=== PATIENT | male | born 2000 | race Caucasian/White ===

== ENCOUNTER 2023-10-27 11:32 | Emergency (ER) | payer MEDICAID, OTHER ==
[~2023-10-27] VITALS: Ht 180.3 cm; Wt 65.6 kg
[2023-10-27] MEDS: cefTRIAXone 1GM/50ML D5W 50 ML IV ONE (12:34)
[2023-10-27] MEDS ORDERED: CLIN150C PO (12:42)
[2023-10-27] MEDS ORDERED: TRAM50TA2 PO (12:42)
[2023-10-27 13:13] VITALS: BP 129/70; PULSE 75; RESP 16; TEMP 98.5; O2SAT 100
== END 2023-10-27 13:14 | disposition home or self-care (01) ==
LOC: ER 11:32
DX: K04.7 Periapical abscess without sinus (principal); F17.210 Nicotine dependence, cigarettes, uncomplicated; F12.10 Cannabis abuse, uncomplicated
CPT/HCPCS: 96365; 99284; J0696

== ENCOUNTER 2024-02-09 06:40 | Emergency (ER) | payer SELFPAY ==
[~2024-02-09] VITALS: Ht 182.9 cm; Wt 66.4 kg
[~2024-02-09 06:40] MED LIST: CLIN150C PO; TRAM50TA2 PO
[2024-02-09 07:01] VITALS: BP 136/86; PULSE 88; RESP 16; TEMP 98.1; O2SAT 98
--- NOTE | 2024-02-09 07:13 | ED.PDOC ---
Eye-HPI HPI Comments 23-year-old male patient presents to the clinic for left-sided facial swelling. Patient reports that the swelling started at 12:00 p.m. yesterday and has significantly increased over night. Denies any fever or pain at this time. Patient reports pain when eating food. Patient reports a history of dental caries with infection in the same place. Patient reports being on antibiotics in October for similar infection. Patient does not currently have insurance with the money to see a dentist. Chief Complaint: Tooth Pain Time Seen by MD: 06:57 Primary Care Provider: NONE Reviewed Notes: Nurses Notes, Medications, Allergies Allergies: Coded Allergies: NO KNOWN ALLERGIES (Unverified , 10/27/23) Home Meds Active Scripts Ibuprofen (Ibuprofen) 600 Mg Tab, 1 TAB PO TID for 30 Days, #90 TAB Prov:OC PAULINO [facility] 02/09/24 Amoxicillin & Pot Clavulanate (Amoxicillin/Clavulanate P) 600 Mg/5 Ml Oralia, 875 MG PO BID for 10 Days, #20 ML 0 Refills Prov:OC PAULINOP 02/09/24 Clindamycin Hcl (CLEOCIN) 150 Mg Cap, 1 CAP PO QID, #40 CAP Prov:DIGNA SANDERSON MD 10/27/23 Tramadol Hcl (Tramadol Hcl) 50 Mg Tab, 50 MG PO Q8HP PRN for 5 Days, #15 TAB Prov:DIGNA SANDERSON MD 10/27/23 Information Source: Patient Mode of Arrival: Ambulatory Past Medical History PAST MEDICAL HISTORY: Denies Surgical History: Denies all surgeries Family History Family History: Reviewed,noncontributory to illness Social History Smoker: Cigarettes Alcohol: Occasionally Drugs: Marijuana Lives In: Home Constitutional: denies: chills, diaphoresis, fatigue, fever, malaise, sweats, weakness, others EENTM: reports: mouth swelling (left) Respiratory: denies: cough, hemoptysis, orthopnea, SOB at rest, shortness of breath, SOB with excertion, stridor, wheezing, others Cardiovascular: denies: chest pain, dizzy spells, diaphoresis, Dyspnea on exertion, edema, irregular heart beat, left arm pain, lightheadedness, palpitations, PND, syncope, others Gastrointestinal: denies: abdomen distended, abdominal pain, blood streaked bowels, constipated, diarrhea, dysphagia, difficulty swallowing, hematemesis, melena, nausea, poor appetite, poor fluid intake, rectal bleeding, rectal pain, vomiting, others Genitourinary: denies: burning, dysuria, flank pain, frequency, hematuria, incontinence, penile discharge, penile sore, pain, testicle pain, testicle swelling, urgency, others Neurological: denies: dizziness, fainting, headache, left sided numbness, left sided weakness, numbness, paresthesia, pre-existing deficit, right sided numbness, right sided weakness, seizure, speech problems, tingling, tremors, weakness, others Musculoskeletal: denies: back pain, gout, joint pain, joint swelling, muscle pain, muscle stiffness, neck pain, others Integumetry: denies: bruises, change in color, change in hair/nails, dryness, laceration, lesions, lumps, rash, wounds, others Allergic/Immunocompromised: denies: Difficulty Healing, Frequent Infections, Hives, Itching, others Hematologic/Lymphatic: denies: anemia, blood clots, easy bleeding, easy bruising, swollen glands, others Endocrine: denies: excessive hunger, excessive sweating, excessive thirst, excessive urination, flushing, intolerance to cold, intolerance to heat, unexplained weight gain, unexplained weight loss, others Psychiatric: denies: anxiety, bipolar disorder, depression, hopeless, panic disorder, schizophrenia, sleepless, suicidal, others All Other Systems: Reviewed and Negative Physical Exam General Appearance: No Apparent Distress, Normal HEENT: Normal ENT Inspection, Pharynx Normal, TMs Normal, Other (Left-sided facial swelling, multiple dental caries) Neck: Full Range of Motion, Non-Tender, Normal, Normal Inspection Respiratory: Chest Non-Tender, Lungs Clear, No Accessory Muscle Use, No Respiratory Distress, Normal Breath Sounds Cardiovascular: No Edema, No JVD, No Murmur, No Gallop, Normal Peripheral Pulses, Regular Rate/Rhythm Breast Exam: Deferred Gastrointestinal: No Organomegaly, Non Tender, No Pulsatile Mass, Normal Bowel Sounds, Soft Genitalia: Deferred Pelvic: Deferred Rectal: Deferred Extremities: No calf tenderness, Normal capillary refill, Normal inspection, Normal range of motion, Non-tender, No pedal edema Musculoskeletal : Apperance: Normal Neurologic: Alert, lift builder whole II-XII nml as Tested, No Motor Deficits, Normal Affect, Normal Mood, No Sensory Deficits Cerebellar Function: Normal Reflexes: Normal Skin: Dry, Normal Color, Warm Lymphatic: No Adenopathy Was a procedure done? Was a procedure done?: No EENT DIFF Eye: N/A Ear: Dental Nose: N/A Mouth: N/A Sore Throat: Herpangina, Pharyngitis X-Ray, Labs, Meds, VS Vital Signs Date Time Temp Pulse Resp B/P (MAP) Pulse Ox O2 Delivery O2 Flow Rate FiO2 02/09/24 07:01 98.1 88 16 136/86 (103) 98 98.1 02/09/24 07:01 88 16 98 Room Air 02/09/24 06:50 98.1 88 16 136/86 (103) 98 Lab Test 02/09/24 00:00 Range/Units White Blood Count 8.7 4.4-10.8 10^3/uL Red Blood Count 4.59 4.5-5.90 10^6/uL Hemoglobin 13.5 13.5-17.5 g/dL Hematocrit 39.4 L 41.0-53.0 % Mean Corpuscular Volume 85.9 80.0-100.0 fL Mean Corpuscular Hemoglobin 29.4 28.0-32.0 pg Mean Corpuscular Hemoglobin Concent 34.2 32.0-36.0 g/dL Red Cell Distribution Width 13.2 11.8-14.3 % Platelet Count 209 140-450 10^3/uL Mean Platelet Volume 8.6 6.9-10.8 fL Neutrophils (%) (Auto) 75.2 37.0-80.0 % Lymphocytes (%) (Auto) 16.6 10.0-50.0 % Monocytes (%) (Auto) 7.5 0.0-12.0 % Eosinophils (%) (Auto) 0.4 0.0-7.0 % Basophils (%) (Auto) 0.3 0.0-2.0 % Neutrophils # (Auto) 6.5 1.6-8.6 10 ^3/uL Lymphocytes # (Auto) 1.4 0.4-5.4 10 ^3/uL Monocytes # (Auto) 0.7 0-1.3 10 ^3/uL Eosinophils # (Auto) 0 0-0.8 10 ^3/uL Basophils # (Auto) 0 0-0.2 10 ^3/uL Nucleated Red Blood Cells 0.0 % Sodium Level 140 136-145 mmol/L Potassium Level 4.4 3.5-5.1 mmol/L Chloride Level 110 H 98-107 mmol/L Carbon Dioxide Level 25 20-31 mmol/L Anion Gap 5 5-15 Blood Urea Nitrogen 11 9-23 mg/dL Creatinine 1.00 0.700-1.30 mg/dL Glomerular Filtration Rate Calc 108 >90 mL/min BUN/Creatinine Ratio 11.0 10.0-20.0 Serum Glucose 97 74-106 mg/dL Calcium Level 9.7 8.7-10.4 mg/dL Current Medications Medications (Trade) Dose Ordered Sig/Marija Route Start Time Stop Time Status Last Admin Penicillin G Benzathine (Bicillin L-A) 2,400,000 units ONCE ONCE IM 02/09/24 07:15 02/09/24 07:20 DC 02/09/24 07:25 Sodium Chloride 1,000 ml @ 1,000 mls/hr Q1H ONCE IV 02/09/24 07:45 02/09/24 08:44 DC 02/09/24 07:55 X-Ray, Labs, Meds, VS Comment On re-evaluation patient has symptomatic improvement. IV and IV fluids carried to patient due to vasovagal situation after a dministration of penicillin Patient is stable for discharge at this time. Patient to attempt to find a dentist or dental insurance and follow up with a dentist for treatment of dental caries. Patient to take antibiotics as prescribed All test results and diagnostic imaging have been interpreted. All diagnostic findings, discharge care, and education instruction provided to the patient. Follow-up with PCP in 2-3 days Patient verbalized understanding, discharge instructions and agrees to treatment plan Vital signs are stable Patient is ambulatory Patient advised of which symptoms necessitate a return visit to the emergency room. Patient to return emergency room for any new worsening symptoms. Patient is aware that the purpose of this visit is for an acute medical emergency requiring emergent stabilization. Chronic conditions, including malignancies have not been ruled out. Patient is instructed to follow up with PCP as directed for continued care and workup. If unable to arrange follow up, patient is to return to the emergency room for reassessment. Patient was given verbal and written discharge instructions and acknowledges understanding Time of 1ST Reevaluation: :55 Reevaluation 1ST: Improved Patient Education/Counseling: Diagnosis, Treatment, Prognosis Family Education/Counseling: No Family Present Departure 1 Departure Time of Disposition: 09:04 Impression: Primary Impression: Infected dental caries Disposition: 01 HOME / SELF CARE / HOMELESS Condition: Stable e-Prescriptions Ibuprofen (Ibuprofen) 600 Mg Tab 1 TAB PO TID for 30 Days, #90 TAB Prov: OC PAULINO [facility] 02/09/24 Amoxicillin & Pot Clavulanate (Amoxicillin/Clavulanate P) 600 Mg/5 Ml Oralia 875 MG PO BID for 10 Days, #20 ML 0 Refills Prov: OC PAULINO [facility] 02/09/24 Discharged With: Self Critical Care Note Critical Care Time?: No Stability Stability form required: No Heart Score Heart Score: Heart Score Response (Comments) Value History N/A 0 EKG N/A 0 Age N/A 0 Risk Factors N/A 0 Troponin N/A 0 Total 0 OC PAULINO [facility] Feb 09, 2024 07:13
[2024-02-09] MEDS ORDERED: IBUP-1454 PO (07:20)
[2024-02-09] MEDS ORDERED: AMOX600S PO (07:20)
[2024-02-09] MEDS: PENICILLIN G BENZ 1,200,000 UNITS/2 ML SYRG IM ONE (07:25)
[2024-02-09] MEDS: SODIUM CHLORIDE 0.9% 1,000 ML IV ONE (07:55)
[2024-02-09 08:30] LABS: Basophils # (auto) 0 10 ^3/uL (0-0.2); Basophils % (auto) 0.3 % (0.0-2.0); Eosinophils # (auto) 0 10 ^3/uL (0-0.8); Eosinophils % (auto) 0.4 % (0.0-7.0); Hematocrit 39.4 % (41.0-53.0); Hemoglobin 13.5 g/dL (13.5-17.5); Lymphocytes # (auto) 1.4 10 ^3/uL (0.4-5.4); Lymphocytes % (auto) 16.6 % (10.0-50.0); Mean Corpuscular Hemoglobin 29.4 pg (28.0-32.0); Mean Corpuscular Hgb Conc. 34.2 g/dL (32.0-36.0); Mean Corpuscular Volume 85.9 fL (80.0-100.0); Monocytes # (auto) 0.7 10 ^3/uL (0-1.3); Monocytes % (auto) 7.5 % (0.0-12.0); Neutrophils # (auto) 6.5 10 ^3/uL (1.6-8.6); Neutrophils % (auto) 75.2 % (37.0-80.0); Platelet Count (auto) 209 10^3/uL (140-450); Red Blood Cells 4.59 10^6/uL (4.5-5.90); Red Cell Distribution Width 13.2 % (11.8-14.3); White Blood Cell 8.7 10^3/uL (4.4-10.8)
[2024-02-09 08:46] LABS: Chloride 110 mmol/L (98-107); Potassium 4.4 mmol/L (3.5-5.1); Sodium 140 mmol/L (136-145)
[2024-02-09 08:47] LABS: Anion Gap 5 (5-15); Calcium 9.7 mg/dL (8.7-10.4); Carbon Dioxide 25 mmol/L (20-31)
[2024-02-09 08:52] LABS: Blood Urea Nitrogen 11 mg/dL (9-23); Glucose 97 mg/dL (74-106)
== END 2024-02-09 18:02 | disposition home or self-care (01) ==
LOC: ER 06:40
DX: K02.9 Dental caries, unspecified (principal); F17.210 Nicotine dependence, cigarettes, uncomplicated; Z79.899 Other long term (current) drug therapy
CPT/HCPCS: 36415; 80048; 85025; 96360; 96372; 99283; J0561; J7030

== ENCOUNTER 2024-03-02 09:15 | Emergency (ER) | payer SELFPAY ==
[~2024-03-02] VITALS: Ht 182.9 cm; Wt 68.0 kg
[~2024-03-02 09:15] MED LIST changes: +AMOX600S PO; +IBUP-1454 PO
[2024-03-02 10:42] VITALS: BP 117/62; PULSE 72; RESP 16; TEMP 97.6; O2SAT 99
[2024-03-02] MEDS ORDERED: IBUP-1454 PO (10:47)
--- NOTE | 2024-03-02 10:47 | ED.PDOC ---
History of Present Illness HPI Comments 23-year-old male who comes in with chief complaint of left upper mouth pain as well as pain to the inferior aspect of the left eye. The patient states that he is status post tooth extraction approximately two weeks ago. He was on penicillin but he is no longer on any antibiotics. The patient has no other complaints at this time. Chief Complaint: Face pain Time Seen by MD: 10:15 Primary Care Provider: NONE Reviewed Notes: Nurses Notes, Medications, Allergies (No allergies to medications) Allergies: Coded Allergies: NO KNOWN ALLERGIES (Unverified , 10/27/23) Home Meds Active Scripts Ibuprofen (Ibuprofen) 600 Mg Tab, 1 TAB PO TID for 30 Days, #90 TAB Prov:DIGNA SANDERSON MD 03/02/24 Clindamycin Hcl (CLEOCIN) 150 Mg Cap, 1 CAP PO QID, #40 CAP Prov:DIGNA SANDERSON MD 03/02/24 Amoxicillin & Pot Clavulanate (Amoxicillin/Clavulanate P) 600 Mg/5 Ml Oralia, 875 MG PO BID for 10 Days, #20 ML 0 Refills Prov:OC PAULINO [facility] 02/09/24 Tramadol Hcl (Tramadol Hcl) 50 Mg Tab, 50 MG PO Q8HP PRN for 5 Days, #15 TAB Prov:DIGNA SANDERSON MD 10/27/23 Information Source: Patient Mode of Arrival: Ambulatory Severity: Moderate Timing: Days Duration: Since onset Prehospital treatment: None Associated signs and symptoms The patient denies any fever or chill Past Medical History PAST MEDICAL HISTORY: Denies Surgical History (Other): Tooth extraction Family History Family History: Reviewed,noncontributory to illness Social History Smoker: Cigarettes Alcohol: Occasionally Drugs: Marijuana Lives In: Home Constitutional: denies: chills, diaphoresis, fatigue, fever, malaise, sweats, weakness, others EENTM: reports: others (Swelling to the left facial area underneath the left eye); denies: blurred vision, double vision, ear bleeding, ear discharge, ear drainage, ear pain, ear ringing, eye pain, eye redness, hearing loss, mouth pain, mouth swelling, nasal discharge, nose bleeding, nose congestion, nose pain, photophobia, tearing, throat pain, throat swelling, voice changes Respiratory: denies: cough, hemoptysis, orthopnea, SOB at rest, shortness of breath, SOB with excertion, stridor, wheezing, others Cardiovascular: denies: chest pain, dizzy spells, diaphoresis, Dyspnea on exertion, edema, irregular heart beat, left arm pain, lightheadedness, palpitations, PND, syncope, others Gastrointestinal: denies: abdomen distended, abdominal pain, blood streaked bowels, constipated, diarrhea, dysphagia, difficulty swallowing, hematemesis, melena, nausea, poor appetite, poor fluid intake, rectal bleeding, rectal pain, vomiting, others Genitourinary: denies: burning, dysuria, flank pain, frequency, hematuria, incontinence, penile discharge, penile sore, pain, testicle pain, testicle swelling, urgency, others Neurological: denies: dizziness, fainting, headache, left sided numbness, left sided weakness, numbness, paresthesia, pre-existing deficit, right sided numbness, right sided weakness, seizure, speech problems, tingling, tremors, weakness, others Musculoskeletal: denies: back pain, gout, joint pain, joint swelling, muscle pain, muscle stiffness, neck pain, others Integumetry: denies: bruises, change in color, change in hair/nails, dryness, laceration, lesions, lumps, rash, wounds, others Allergic/Immunocompromised: denies: Difficulty Healing, Frequent Infections, Hives, Itching, others Hematologic/Lymphatic: denies: anemia, blood clots, easy bleeding, easy bruising, swollen glands, others Endocrine: denies: excessive hunger, excessive sweating, excessive thirst, excessive urination, flushing, intolerance to cold, intolerance to heat, u nexplained weight gain, unexplained weight loss, others Psychiatric: denies: anxiety, bipolar disorder, depression, hopeless, panic disorder, schizophrenia, sleepless, suicidal, others Physical Exam General Appearance: No Apparent Distress HEENT: Pharynx Normal, TMs Normal, Other (There is some tenderness to the left Shirley molar area around the tooth extraction) Neck: Full Range of Motion, Non-Tender, Normal, Normal Inspection Respiratory: Chest Non-Tender, Lungs Clear, No Accessory Muscle Use, No Respiratory Distress, Normal Breath Sounds Cardiovascular: No Edema, No JVD, No Murmur, No Gallop, Normal Peripheral Pulse s, Regular Rate/Rhythm Breast Exam: Deferred Gastrointestinal: No Organomegaly, Non Tender, No Pulsatile Mass, Normal Bowel Sounds, Soft Genitalia: Deferred Pelvic: Deferred Rectal: Deferred Extremities: No calf tenderness, Normal capillary refill, Normal inspection, Normal range of motion, Non-tender, No pedal edema Musculoskeletal : Apperance: Normal Neurologic: Alert, can tester II-XII nml as Tested, No Motor Deficits, Normal Affect, Normal Mood, No Sensory Deficits Cerebellar Function: Normal Reflexes: Normal Skin: Dry, Normal Color, Warm Lymphatic: No Adenopathy Was a procedure done? Was a procedure done?: No Differential Dx Considerations may include: Cellulitis, abscess X-Ray, Labs, Meds, VS Vital Signs Date Time Temp Pulse Resp B/P (MAP) Pulse Ox O2 Delivery O2 Flow Rate FiO2 03/02/24 10:43 Room Air* 0 21 03/02/24 10:42 97.6 72 16 117/62 (80) 99 97.6 03/02/24 09:25 98.0 83 16 135/79 (97) 99 The patient is being discharged on clindamycin The patient will return to the emergency department's the condition worsens. Images Reviewed?: Images reviewed and evaluated by me Time of 1ST Reevaluation: 10:46 Reevaluation 1ST: Improved Patient Education/Counseling: Diagnosis, Treatment, Prognosis, Need For Follow Up Family Education/Counseling: No Family Present Departure 1 Departure Time of Disposition: 10:46 Impression: Primary Impression: Infected dental caries Disposition: 01 HOME / SELF CARE / HOMELESS Condition: Fair e-Prescriptions Ibuprofen (Ibuprofen) 600 Mg Tab 1 TAB PO TID for 30 Days, #90 TAB Prov: DIGNA SANDERSON MD 03/02/24 Clindamycin Hcl (CLEOCIN) 150 Mg Cap 1 CAP PO QID, #40 CAP Prov: DIGNA SANDERSON MD 03/02/24 Discharged With: Self Critical Care Note Critical Care Time?: No Stability Stability form required: No Heart Score Heart Score: Heart Score Response (Comments) Value History N/A 0 EKG N/A 0 Age N/A 0 Risk Factors N/A 0 Troponin N/A 0 Total 0 DIGNA SANDERSON MD Mar 02, 2024 10:47
== END 2024-03-02 10:56 | disposition home or self-care (01) ==
LOC: ER 09:15
DX: K02.9 Dental caries, unspecified (principal); K04.7 Periapical abscess without sinus; F17.210 Nicotine dependence, cigarettes, uncomplicated; Z79.899 Other long term (current) drug therapy; Z98.890 Other specified postprocedural states

== ENCOUNTER 2024-04-20 13:32 | Emergency (ER) | payer SELFPAY ==
[~2024-04-20] VITALS: Ht 182.9 cm; Wt 67.9 kg
[2024-04-20 14:43] VITALS: BP 120/67; PULSE 83; RESP 18; TEMP 97.6; O2SAT 96
[2024-04-20] MEDS ORDERED: CLIN1CAP70 PO (15:57)
[2024-04-20] MEDS ORDERED: AMOX500C2 PO (15:57)
--- NOTE | 2024-04-20 15:57 | ED.PDOC ---
History of Present Illness HPI Comments 23-year-old male came to the ER stating that he has been having tooth swelling which started last night. Swelling is on the left side left lower tooth. He does have dental caries. Denies any fever chills cough. Denies any other symptoms. Chief Complaint: Tooth Pain Time Seen by MD: 14:28 Primary Care Provider: DENIES Reviewed Notes: Nurses Notes, Medications, Allergies Allergies: Coded Allergies: Penicillins (Verified Allergy, Unknown, 04/20/24) Home Meds Active Scripts Ibuprofen (Ibuprofen) 600 Mg Tab, 1 TAB PO TID for 30 Days, #90 TAB Prov:DIGNA SANDERSON MD 03/02/24 Clindamycin Hcl (CLEOCIN) 150 Mg Cap, 1 CAP PO QID, #40 CAP Prov:DIGNA SANDERSON MD 03/02/24 Amoxicillin & Pot Clavulanate (Amoxicillin/Clavulanate P) 600 Mg/5 Ml Oralia, 875 MG PO BID for 10 Days, #20 ML 0 Refills Prov:OC PAULINO 02/09/24 Tramadol Hcl (Tramadol Hcl) 50 Mg Tab, 50 MG PO Q8HP PRN for 5 Days, #15 TAB Prov:DIGNA SANDERSON MD 10/27/23 Information Source: Patient Mode of Arrival: Ambulatory Severity: Mild Timing: Hours Duration: Since onset Past Medical History PAST MEDICAL HISTORY: Denies Surgical History: Denies all surgeries Family History Family History: Reviewed,noncontributory to illness Social History Smoker: Cigarettes Alcohol: Occasionally Drugs: Marijuana Lives In: Home Constitutional: denies: chills, diaphoresis, fatigue, fever, malaise, sweats, weakness, others EENTM: denies: blurred vision, double vision, ear bleeding, ear discharge, ear drainage, ear pain, ear ringing, eye pain, eye redness, hearing loss, mouth pa in, mouth swelling, nasal discharge, nose bleeding, nose congestion, nose pain, photophobia, tearing, throat pain, throat swelling, voice changes, others Respiratory: denies: cough, hemoptysis, orthopnea, SOB at rest, shortness of breath, SOB with excertion, stridor, wheezing, others Cardiovascular: denies: chest pain, dizzy spells, diaphoresis, Dyspnea on exertion, edema, irregular heart beat, left arm pain, lightheadedness, palpitations, PND, syncope, others Gastrointestinal: denies: abdomen distended, abdominal pain, blood streaked bowels, constipated, diarrhea, dysphagia, difficulty swallowing, hematemesis, melena, nausea, poor appetite, poor fluid intake, rectal bleeding, rectal pain, vomiting, others Genitourinary: denies: burning, dysuria, flank pain, frequency, hematuria, incontinence, penile discharge, penile sore, pain, testicle pain, testicle swelling, urgency, others Neurological: denies: dizziness, fainting, headache, left sided numbness, left sided weakness, numbness, paresthesia, pre-existing deficit, right sided numbness, right sided weakness, seizure, speech problems, tingling, tremors, weakness, others Musculoskeletal: denies: back pain, gout, joint pain, joint swelling, muscle pain, muscle stiffness, neck pain, others Integumetry: reports: wounds (Left lower tooth); denies: bruises, change in color, change in hair/nails, dryness, laceration, lesions, lumps, rash, others Allergic/Immunocompromised: denies: Difficulty Healing, Frequent Infections, Hives, Itching, others Hematologic/Lymphatic: denies: anemia, blood clots, easy bleeding, easy bruising, swollen glands, others Endocrine: denies: excessive hunger, excessive sweating, excessive thirst, excessive urination, flushing, intolerance to cold, intolerance to heat, unexplained weight gain, unexplained weight loss, others Psychiatric: denies: anxiety, bipolar disorder, depression, hopeless, panic disorder, schizophrenia, sleepless, suicidal, others Physical Exam General Appearance: Moderate Distress HEENT: Other (Dental caries) Neck: Full Range of Motion, Non-Tender, Normal, Normal Inspection Respiratory: Chest Non-Tender, Lungs Clear, No Accessory Muscle Use, No Respiratory Distress, Normal Breath Sounds Cardiovascular: No Edema, No JVD, No Murmur, No Gallop, Normal Peripheral Pulses, Regular Rate/Rhythm Breast Exam: Deferred Gastrointestinal: No Organomegaly, Non Tender, No Pulsatile Mass, Normal Bowel Sounds, Soft Genitalia: Deferred Pelvic: Deferred Rectal: Deferred Extremities: No calf tenderness, Normal capillary refill, Normal inspection, Normal range of motion, Non-tender, No pedal edema Musculoskeletal : Apperance: Normal Neurologic: Alert, customer contact sales associate II-XII nml as Tested, No Motor Deficits, Normal Affect, Normal Mood, No Sensory Deficits Cerebellar Function: Normal Reflexes: Normal Skin: Wounds (Infected lower tooth) Peripheral Pulses: 3+ Radial (R), 3+ Radial (L) Lymphatic: No Adenopathy Was a procedure done? Was a procedure done?: No Differential Dx Considerations may include: Dental caries X-Ray, Labs, Meds, VS Vital Signs Date Time Temp Pulse Resp B/P (MAP) Pulse Ox O2 Delivery O2 Flow Rate FiO2 04/20/24 14:43 97.6 83 18 120/67 (84) 96 97.6 04/20/24 14:05 97.6 83 18 120/67 (84) 96 Patient alert. Complaining of tooth swelling. Vitals stable. Answering all questions. Dental caries. Was given prescription of amoxicillin clindamycin antibiotic. Explained to the patient. Was told to follow up with his dentist. Was told to follow up with his primary care physician. Was told to come back if there is any problem. Time of 1ST Reevaluation: 15:55 Reevaluation 1ST: Unchanged Patient Education/Counseling: Diagnosis, Treatment, Prognosis, Need For Follow Up Family Education/Counseling: No Family Present Departure 1 Departure Time of Disposition: 15:56 Impression: Primary Impression: Infected dental caries Disposition: 01 HOME / SELF CARE / HOMELESS Condition: Good e-Prescriptions Clindamycin Hcl (Clindamycin Hcl) 300 Mg Cap 1 CAP PO TID for 7 Days, #21 CAP Prov: PAPO ALLEN MD 04/20/24 Amoxicillin Trihydrate (Amoxicillin) 500 Mg Cap 1 CAP PO TID for 7 Days, #21 CAP Prov: PAPO ALLEN MD 04/20/24 Discharged With: Self Critical Care Note Critical Care Time?: No Stability Stability form required: No Heart Score Heart Score: Heart Score Response (Comments) Value History N/A 0 EKG N/A 0 Age N/A 0 Risk Factors N/A 0 Troponin N/A 0 Total 0 PAPO ALLEN MD Apr 20, 2024 15:57
== END 2024-04-20 15:49 | disposition home or self-care (01) ==
LOC: ER 13:39
DX: K04.7 Periapical abscess without sinus (principal); K02.9 Dental caries, unspecified; F17.210 Nicotine dependence, cigarettes, uncomplicated; Z79.899 Other long term (current) drug therapy; Z88.0 Allergy status to penicillin

== ENCOUNTER 2024-05-20 20:59 | Emergency (ER) | payer SELFPAY ==
[~2024-05-20] VITALS: Ht 182.9 cm; Wt 67.7 kg
[~2024-05-20 20:59] MED LIST changes: +AMOX500C2 PO; +CLIN1CAP70 PO
[2024-05-20 21:10] VITALS: BP 128/90; PULSE 89; RESP 15; TEMP 98; O2SAT 95
[2024-05-20] MEDS ORDERED: AUG875T PO (22:10)
[2024-05-20] MEDS ORDERED: IBUP-1455 PO (22:10)
--- NOTE | 2024-05-20 22:10 | ED.PDOC ---
Eye-HPI HPI Comments Pt presents with mouth abscess x1 month. Pt says he was seen at [facility] and was told he has abscess and to be seen at dentist. Pt says he was discharged and was planning on taking care of tooth extraction next week but does not have form of payment. Pt has pain to left lower side of mouth. Rates current pain 6/10, denies any fevers. Chief Complaint: Abscess Time Seen by MD: 21:05 Primary Care Provider: DENIES Reviewed Notes: Nurses Notes, Medications, Allergies Allergies: Coded Allergies: Penicillins (Verified Allergy, Unknown, 04/20/24) Home Meds Active Scripts Ibuprofen Micronized (Ibuprofen) 800 Mg Tab, 800 MG PO TID PRN for 5 Days, #15 TAB Prov:TORY VYAS [facility] 05/20/24 Amoxicillin & Pot Clavulanate (AUGMENTIN TABLET) 875 Mg Tb, 875 MG PO BID for 7 Days, #14 TAB Prov:TORY VYASP 05/20/24 Clindamycin Hcl (Clindamycin Hcl) 300 Mg Cap, 1 CAP PO TID for 7 Days, #21 CAP Prov:PAPO ALLEN MD 04/20/24 Amoxicillin Trihydrate (Amoxicillin) 500 Mg Cap, 1 CAP PO TID for 7 Days, #21 CAP Prov:PAPO ALLEN MD 04/20/24 Ibuprofen (Ibuprofen) 600 Mg Tab, 1 TAB PO TID for 30 Days, #90 TAB Prov:DIGNA SANDERSON MD 03/02/24 Clindamycin Hcl (CLEOCIN) 150 Mg Cap, 1 CAP PO QID, #40 CAP Prov:DIGNA SANDERSON MD 03/02/24 Amoxicillin & Pot Clavulanate (Amoxicillin/Clavulanate P) 600 Mg/5 Ml Oralia, 875 MG PO BID for 10 Days, #20 ML 0 Refills Prov:OC PAULINO [facility] 02/09/24 Tramadol Hcl (Tramadol Hcl) 50 Mg Tab, 50 MG PO Q8HP PRN for 5 Days, #15 TAB Prov:DIGNA SANDERSON MD 10/27/23 Mode of Arrival: Ambulatory Past Medical History PAST MEDICAL HISTORY: Denies Surgical History: Denies all surgeries Family History Family History: Reviewed,noncontributory to illness Social History Smoker: Cigarettes Alcohol: Occasionally Drugs: Marijuana Lives In: Home Constitutional: denies: chills, diaphoresis, fatigue, fever, malaise, sweats, weakness, others EENTM: reports: others (Dental pain); denies: blurred vision, double vision, ear bleeding, ear discharge, ear drainage, ear pain, ear ringing, eye pain, eye redness, hearing loss, mouth pain, mouth swelling, nasal discharge, nose bleeding, nose congestion, nose pain, photophobia, tearing, throat pain, throat swelling, voice changes Respiratory: denies: cough, hemoptysis, orthopnea, SOB at rest, shortness of breath, SOB with excertion, stridor, wheezing, others Cardiovascular: denies: chest pain, dizzy spells, diaphoresis, Dyspnea on exertion, edema, irregular heart beat, left arm pain, lightheadedness, palpitations, PND, syncope, others Gastrointestinal: denies: abdomen distended, abdominal pain, blood streaked bowels, constipated, diarrhea, dysphagia, difficulty swallowing, hematemesis, melena, nausea, poor appetite, poor fluid intake, rectal bleeding, rectal pain, vomiting, others Genitourinary: denies: burning, dysuria, flank pain, frequency, hematuria, incontinence, penile discharge, penile sore, pain, testicle pain, testicle swelling, urgency, others Neurological: denies: dizziness, fainting, headache, left sided numbness, left sided weakness, numbness, paresthesia, pre-existing deficit, right sided numbne ss, right sided weakness, seizure, speech problems, tingling, tremors, weakness, others Musculoskeletal: denies: back pain, gout, joint pain, joint swelling, muscle pain, muscle stiffness, neck pain, others Integumetry: denies: bruises, change in color, change in hair/nails, dryness, laceration, lesions, lumps, rash, wounds, others Allergic/Immunocompromised: denies: Difficulty Healing, Frequent Infections, Hives, Itching, others Hematologic/Lymphatic: denies: anemia, blood clots, easy bleeding, easy bruising, swollen glands, others Endocrine: denies: excessive hunger, excessive sweating, excessive thirst, excessive urination, flushing, intolerance to cold, intolerance to heat, unexplained weight gain, unexplained weight loss, others Psychiatric: denies: anxiety, bipolar disorder, depression, hopeless, panic disorder, schizophrenia, sleepless, suicidal, others Physical Exam General Appearance: No Apparent Distress, Normal HEENT: TMs Normal, Other (Left lower molar Number 38 with severe decay. No noted Obvious abscess) Neck: Full Range of Motion, Non-Tender, Normal, Normal Inspection Respiratory: Chest Non-Tender, Lungs Clear, No Accessory Muscle Use, No Res piratory Distress, Normal Breath Sounds Cardiovascular: No Edema, No JVD, No Murmur, No Gallop, Normal Peripheral Pulses, Regular Rate/Rhythm Breast Exam: Deferred Gastrointestinal: No Organomegaly, Non Tender, No Pulsatile Mass, Normal Bowel Sounds, Soft Genitalia: Deferred Pelvic: Deferred Rectal: Deferred Extremities: No calf tenderness, Normal capillary refill, Normal inspection, Normal range of motion, Non-tender, No pedal edema Musculoskeletal : Apperance: Normal Neurologic: Alert, 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 Was a procedure done?: No EENT DIFF Eye: N/A Sore Throat: Eugene's Angina X-Ray, Labs, Meds, VS Vital Signs Date Time Temp Pulse Resp B/P (MAP) Pulse Ox O2 Delivery O2 Flow Rate FiO2 05/20/24 21:10 98.0 89 15 128/90 (103) 95 98.0 05/20/24 21:10 98.0 89 15 128/90 (103) 95 05/20/24 21:10 Room Air Current Medications Medications (Trade) Dose Ordered Sig/Marija Route Start Time Stop Time Status Last Admin Ceftriaxone Sodium (Rocephin) 1,000 mg ONCE ONCE IM 05/20/24 22:00 05/20/24 22:01 DC 05/20/24 22:16 Ketorolac Tromethamine (Toradol Injection) 60 mg ONCE ONCE IM 05/20/24 22:00 05/20/24 22:01 DC 05/20/24 22:17 Lidocaine HCl (Xylocaine 1%) 2.2 ml ONCE ONCE ID 05/20/24 22:15 05/20/24 22:16 DC 05/20/24 22:40 X-Ray, Labs, Meds, VS Comment Patient given Rocephin 1 g IM and Toradol 60 mg IM. Reports improvement in pain requesting discharge at this time. Advised patient to schedule an appointment with dental for resolution antibiotics and ibuprofen advised to take medication as prescribed side effects discussed. Return precautions given patient indicates understanding agrees with discharge plan of care. Time of 1ST Reevaluation: 22:07 Reevaluation 1ST: Improved Patient Education/Counseling: Diagnosis, Treatment, Prognosis, Need For Follow Up Family Education/Counseling: No Family Present Departure 1 Departure Time of Disposition: 22:08 Impression: Primary Impression: Dental abscess Additional Impression: Infected dental caries Disposition: HOME / SELF CARE / HOMELESS Condition: Stable e-Prescriptions Ibuprofen Micronized (Ibuprofen) 800 Mg Tab 800 MG PO TID PRN for 5 Days, #15 TAB Prov: TORY VYAS 05/20/24 Amoxicillin & Pot Clavulanate (AUGMENTIN TABLET) 875 Mg Tb 875 MG PO BID for 7 Days, #14 TAB Prov: TORY VYAS 05/20/24 Discharged With: Self Critical Care Note Critical Care Time?: No Stability Stability form required: No TORY VYAS May 20, 2024 22:10
[2024-05-20] MEDS: cefTRIAXone SOD 1,000 MG VL IM ONE (22:16)
[2024-05-20] MEDS: KETOROLAC TROMETH 60MG/2ML VIAL IM ONE (22:17)
[2024-05-20] MEDS: LIDOCAINE 1% HCL (LOCAL ANESTH.) INJ 20ML MDV ID ONE (22:40)
== END 2024-05-20 22:44 | disposition home or self-care (01) ==
LOC: ER 20:59
DX: K04.7 Periapical abscess without sinus (principal); K02.9 Dental caries, unspecified; F12.10 Cannabis abuse, uncomplicated; F17.210 Nicotine dependence, cigarettes, uncomplicated; Z79.1 Long term (current) use of non-steroidal anti-inflammatories (NSAID); Z88.0 Allergy status to penicillin
CPT/HCPCS: 96372; 99284; J0696; J1885; J2003

== ENCOUNTER 2024-07-20 12:18 | Emergency (ER) | payer SELFPAY ==
[~2024-07-20] VITALS: Ht 182.9 cm; Wt 67.5 kg
[2024-07-20 14:06] VITALS: BP 148/82; PULSE 100; RESP 18; TEMP 97.9; O2SAT 100
[2024-07-20] MEDS ORDERED: AUG875T PO (14:07)
--- NOTE | 2024-07-20 14:08 | ED.PDOC ---
Eye-HPI HPI Comments 24-year-old male presents for left acute otitis media. Onto started two days ago Chief Complaint: Earache Time Seen by MD: 12:26 Primary Care Provider: DENIES Allergies: Coded Allergies: Penicillins (Verified Allergy, Unknown, 04/20/24) Home Meds Active Scripts Clindamycin Hcl (Clindamycin Hcl) 300 Mg Cap, 1 CAP PO TID for 7 Days, #21 CAP Prov:PAPO ALLEN MD 04/20/24 Amoxicillin Trihydrate (Amoxicillin) 500 Mg Cap, 1 CAP PO TID for 7 Days, #21 CAP Prov:PAPO ALLEN MD 04/20/24 Ibuprofen (Ibuprofen) 600 Mg Tab, 1 TAB PO TID for 30 Days, #90 TAB Prov:DIGNA SANDERSON MD 03/02/24 Clindamycin Hcl (CLEOCIN) 150 Mg Cap, 1 CAP PO QID, #40 CAP Prov:DIGNA SANDERSON MD 03/02/24 Amoxicillin & Pot Clavulanate (Amoxicillin/Clavulanate P) 600 Mg/5 Ml Oralia, 875 MG PO BID for 10 Days, #20 ML 0 Refills Prov:OC PAULINO [employer] 02/09/24 Tramadol Hcl (Tramadol Hcl) 50 Mg Tab, 50 MG PO Q8HP PRN for 5 Days, #15 TAB Prov:DIGNA SANDERSON MD 10/27/23 Past Medical History PAST MEDICAL HISTORY: Denies Surgical History: Denies all surgeries Family History Family History: Reviewed,noncontributory to illness Social History Smoker: Cigarettes Alcohol: Occasionally Drugs: Marijuana Lives In: Home X-Ray, Labs, Meds, VS Vital Signs Date Time Temp Pulse Resp B/P (MAP) Pulse Ox O2 Delivery O2 Flow Rate FiO2 07/20/24 13:23 100 18 100 Room Air 07/20/24 13:23 97.9 100 18 149/82 (104) 100 97.9 Departure 1 Departure Time of Disposition: 14:06 Impression: Primary Impression: AOM (acute otitis media) Qualified Codes: H66.002 - Acute suppurative otitis media without spontaneous rupture of ear drum, left ear Disposition: HOME / SELF CARE / HOMELESS Condition: Stable e-Prescriptions Amoxicillin & Pot Clavulanate (AUGMENTIN TABLET) 875 Mg Tb 875 MG PO BID for 7 Days, #14 TAB 0 Refills Prov: ROSIE HERNANDEZ NP 07/20/24 ROSIE HERNANDEZ NP Jul 20, 2024 14:07
== END 2024-07-20 14:06 | disposition home or self-care (01) ==
LOC: ER 12:18
DX: H66.92 Otitis media, unspecified, left ear (principal); F17.210 Nicotine dependence, cigarettes, uncomplicated; F12.90 Cannabis use, unspecified, uncomplicated; Z79.1 Long term (current) use of non-steroidal anti-inflammatories (NSAID); Z79.899 Other long term (current) drug therapy; Z88.0 Allergy status to penicillin